=== PATIENT | female | born 1935 | race Caucasian/White ===

== ENCOUNTER 2016-07-06 00:06 | Outpatient (CLI) | payer OTHER | END 2016-07-06 00:07 | LOC: AMBL 00:06 | PROVIDERS: ATTEND Emergency Medicine | DX: Z43.1 Encounter for attention to gastrostomy (principal); Z86.73 Personal history of transient ischemic attack (TIA), and cerebral infarction without residual deficits; F03.90 Unspecified dementia, unspecified severity, without behavioral disturbance, psychotic disturbance, mood disturbance, and anxiety; Z86.69 Personal history of other diseases of the nervous system and sense organs ==

== ENCOUNTER 2016-08-19 14:03 | Outpatient (CLI) ==
[2016-08-19 14:29] LABS: BILIRUBIN,URINE Negative (NEGATIVE); KETONES,URINE Negative (NEGATIVE); LEUKOCYTE ESTERASE ,URINE Negative (NEGATIVE); NITRITE,URINE Negative (NEGATIVE); PROTEIN,URINE Negative (NEGATIVE); URINE, BLOOD 1+ (NEGATIVE)
[2016-08-19 14:38] LABS: ADD URINE MICROSCOPIC YES
== END 2016-08-19 14:04 | disposition home or self-care (01) ==
LOC: NONPT 14:03
PROVIDERS: ATTEND Family Medicine
DX: R39.15 Urgency of urination (principal); R41.0 Disorientation, unspecified
CPT/HCPCS: 81001

== ENCOUNTER 2016-11-18 12:20 | Outpatient (CLI) | END 2016-11-18 12:21 | disposition home or self-care (01) | LOC: NONPT 12:20 | PROVIDERS: ATTEND Family Medicine | DX: J02.9 Acute pharyngitis, unspecified (principal) | CPT/HCPCS: 87651; 87880 ==

== ENCOUNTER 2017-09-09 01:40 | Emergency (ER) ==
[2017-09-09] MEDS ORDERED: TORADOL IM STA (01:47)
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
[2017-09-09 02:00] VITALS: BP 141/90; TEMP 96.2; BMI 30.9
--- NOTE | 2017-09-09 02:37 | DI ---
Exam: Left femur two-view History: Fall with injury and pain Findings / impression: The bones are demineralized. 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 No acute bony abnormality of the femur. The femoral hip is included.
--- NOTE | 2017-09-09 02:38 | DI ---
Exam: Right knee four views History: Fall with injury and pain Findings / impression: Prior right knee arthroplasty. No ronan-hardware fracture or evidence of loos ening. No acute bony or articular abnormalities.
--- NOTE | 2017-09-09 02:40 | DI ---
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 Mild - moderate osteoarthritic change of the acromioclavicular joint. No acute bony or artic ular abnormalities are seen.
== END 2017-09-09 03:39 | disposition short-term general hospital (02) ==
LOC: ED 01:40
DX: S73.102A Unspecified sprain of left hip, initial encounter (principal); S49.91XA Unspecified injury of right shoulder and upper arm, initial encounter; W19.XXXA Unspecified fall, initial encounter; I62.9 Nontraumatic intracranial hemorrhage, unspecified; G81.94 Hemiplegia, unspecified affecting left nondominant side; M79.661 Pain in right lower leg
CPT/HCPCS: 96372; 99283

== ENCOUNTER 2017-10-29 14:55 | Outpatient (CLI) | END 2017-10-29 14:56 | disposition home or self-care (01) | LOC: NONPT 14:55 | PROVIDERS: ATTEND Emergency Medicine | DX: R41.0 Disorientation, unspecified (principal); R41.82 Altered mental status, unspecified | CPT/HCPCS: 81001; 87086; 87186 ==

== ENCOUNTER 2018-01-16 17:45 | Outpatient (CLI) | END 2018-01-16 18:07 | disposition short-term general hospital (02) | LOC: AMBL 17:45 | PROVIDERS: ATTEND Internal Medicine | DX: R50.9 Fever, unspecified (principal); R51 Headache; R09.81 Nasal congestion ==

== ENCOUNTER 2018-07-21 15:37 | Emergency (ER) | payer OTHER ==
[2018-07-21 15:45] VITALS: BP 143/80; TEMP 97.3; BMI 32.8
[2018-07-21] MEDS ORDERED: SILVADENE CREAM TP STA (15:58)
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
== END 2018-07-21 16:30 | disposition home or self-care (01) ==
LOC: ED 15:37
DX: T21.12XA Burn of first degree of abdominal wall, initial encounter (principal); X10.0XXA Contact with hot drinks, initial encounter
CPT/HCPCS: 99283

== ENCOUNTER 2019-03-05 10:29 | Outpatient (CLI) | payer OTHER | END 2019-03-05 10:30 | disposition home or self-care (01) | LOC: NONPT 10:29 | PROVIDERS: ATTEND General Practice | DX: Z79.899 Other long term (current) drug therapy (principal) | CPT/HCPCS: 80185 ==